=== PATIENT | male | born 1990 | race Caucasian/White ===

== ENCOUNTER 2018-08-09 13:45 | Emergency (ER) | payer BC, OTHER ==
[2018-08-09] MEDS ORDERED: LIDOCAINE 2% MPF 5 ML VIAL ONE (14:14)
[2018-08-09] MEDS ORDERED: NA CHLORIDE 0.9% 1,000 ML ONE (14:14)
[2018-08-09 14:22] LABS: Absolute Monocytes 0.5 K/uL (0.1-1.3); Absolute Neutrophil 4.5 K/uL (1.8-8.0); Basophils % 0.6 % (0-1.3); Eosinophils % 2.9 % (0-4.4); Hematocrit 28.2 % (39.6-49.0); Lymphocytes % 16.4 % (15.3-44.8); MPV 8.1 fL (7.6-11.3); Monocytes % 8.3 % (3.3-12.3); RBC Red Blood Cell Count 4.51 M/uL (4.33-5.43)
[2018-08-09 14:37] LABS: BUN Blood Urea Nitrogen 10 mg/dL (7-18); Bicarbonate 29 mmol/L (21-32); Glucose Level 129 mg/dL (74-106); Potassium 3.2 mmol/L (3.5-5.1); Sodium Level 141 mmol/L (136-145)
--- NOTE | 2018-08-09 14:40 | RAD REPORT ---
EXAM DESCRIPTION: CT - Head Brain Wo Cont - 08/09/2018 2:31 pm CLINICAL HISTORY: Syncope, blunt force trauma, head injury, right periorbital laceration, headache COMPARISON: None. TECHNIQUE: Axial 5 mm thick images of the head were obtained without IV contrast. All CT scans are performed using dose optimization technique as appropriate and may include automated exposure control or mA/KV adjustment according to patient size. FINDINGS: No intracranial hemorrhage, mass, edema or shift of mid-line structures. No acute infarcti on changes seen. No abnormal extra-axial fluid collections. Ventricles are normal. Mastoid air cells and visualized portions of the paranasal sinuses are clear. No acute bony findings. IMPRESSION: Negative non-contrast CT head examination.
--- NOTE | 2018-08-09 16:01 | ER ---
Nurse's Notes [facility] Name: Migue Quan Age: 27 yrs Sex: Male : 1990 Arrival Date: 08/09/2018 Time: 13:53 Bed 26 Private MD: Diagnosis: Forehead laceration;Anemia, unspecified Presentation: 08/09 13:53 Presenting complaint: EMS states: was getting into the shower and became dizzy and em fell, has been "fighting the flu" and fell, denies LOC, 1-2 inch laceration noted to right eye brow, small amount of bleeding noted, reports headache 5/10, denies N/V, A\\T\\Ox4. Transition of care: patient was not received from another setting of care. Complicating Factors: There are no complicating factors for this patient. Onset of symptoms was August 09, 2018. Risk Assessment: Do you want to hurt yourself or someone else? Patient reports no desire to harm self or others. Initial Sepsis Screen: Does the patient meet any 2 criteria? No. Patient's initial sepsis screen is negative. Does the patient have a suspected source of infection? Yes: Skin breakdown/wound. Care prior to arrival: Medication(s) given: Normal saline infusion, 250 mL. 13:53 Method Of Arrival: EMS: [facility] em 14:01 Acuity: SUJATA 3 aa5 Triage Assessment: 13:57 General: Appears in no apparent distress. comfortable, Behavior is calm, cooperative. em Pain: Complains of pain in middle aspect of right eyebrow. Injury Description: Laceration sustained to middle aspect of right eyebrow is 2.6 to 7.5 cm long, bleeding moderately. Historical: - Allergies: 13:57 No Known Allergies; em - PMHx: 13:57 None; em - PSHx: 13:57 None; em - Immunization history:: Adult Immunizations up to date, Last tetanus immunization: > 10 years ago. - Social history:: Smoking status: Patient/guardian denies using tobacco. - Ebola Screening: : Patient negative for fever greater than or equal to 101.5 degrees Fahrenheit, and additional compatible Ebola Virus Disease symptoms Patient denies exposure to infectious person Patient denies travel to an Ebola-affected area in the 21 days before illness onset No symptoms or risks identified at this time. - Family history:: not pertinent. - Hospitalizations: : No recent hospitalization is reported. Screenin:59 Abuse screen: Denies threats or abuse. Nutritional screening: No deficits noted. em Tuberculosis screening: No symptoms or risk factors identified. Fall Risk None identified. Assessment: 13:53 General: Appears in no apparent distress. comfortable, Behavior is calm, cooperative. em Pain: Complains of pain in middle aspect of right eyebrow Pain currently is 5 out of 10 on a pain scale. Neuro: Level of Consciousness is awake, alert, obeys commands, Oriented to person, place, time, situation, Reports dizziness, headache. Cardiovascular: Capillary refill < 3 seconds Patient's skin is warm and dry. Respiratory: Airway is patent Respiratory effort is even, unlabored, Respiratory pattern is regular, symmetrical. GI: Abdomen is flat, Patient currently denies nausea, vomiting. : No signs and/or symptoms were reported regarding the genitourinary system. Derm: Skin is intact, is healthy with good turgor, Skin is pink, warm \\T\\ dry. Musculoskeletal: Capillary refill < 3 seconds, Range of motion: intact in all extremities. Injury Description: Laceration sustained to middle aspect of right eyebrow is 2.6 to 7.5 cm long, was sustained 30-60 minutes ago. 13:53 Reassessment: I agree with assessment completed by BIANCA Romero aa5 14:58 Reassessment: Patient appears in no apparent distress at this time. Patient and/or em family updated on plan of care and expected duration. Pain level reassessed. Patient is alert, oriented x 3, equal unlabored respirations, skin warm/dry/pink. 16:01 Reassessment: Patient appears in no apparent distress at this time. Patient and/or em family updated on plan of care and expected duration. Pain level reassessed. Patient is alert, oriented x 3, equal unlabored respirations, skin warm/dry/pink. Vital Signs: 13:57 BP 116 / 59; Pulse 82; Resp 18; Temp 98.3(O); Pulse Ox 99% on R/A; Weight 83.91 kg; em Height 6 ft. 3 in. (190.50 cm); Pain 5/10; 15:00 BP 117 / 64; Pulse 79; Resp 16; Pulse Ox 99% on R/A; em 13:57 Body Mass Index 23.12 (83.91 kg, 190.50 cm) em ED Course: 13:53 Patient arrived in ED. em 13:53 Tres Flowers MD is Attending Physician. rn 13:57 Arm band placed on. em 14:00 Initial lab(s) drawn, by me, sent to lab. Maintain EMS IV. Dressing intact. Good blood jp3 return noted. Site clean \\T\\ dry. Gauge \\T\\ site: 20-gauge in RAC. Patient maintains SpO2 saturation greater than 95% on room air. Wound care: to laceration located on inner aspect of right eyebrow and middle aspect of right eyebrow was cleaned with Hibiclens, debrided using Betadine scrub, irrigated with normal saline, Patient tolerated well. 14:01 Triage completed. aa5 14:02 Gregorio Carrington LVN is Primary Nurse. em 14:30 Basic Metabolic Panel Sent. jp3 14:30 CBC with Diff Sent. jp3 14:31 CT Head Brain wo Cont In Process Unspecified. EDMS 14:31 Bed in low position. Call light in reach. Side rails up X 1. Side rails up X2. Warm jp3 blanket given. Pulse ox on. NIBP on. 14:48 EKG done, by central supply tech. reviewed by Tres Flowers MD. at1 15:40 Assist provider with laceration repair on middle aspect of right eyebrow that was em between 2.6 to 7.5 cm using sutures. Set up tray. Performed by Francesco CABRERA Dressed with 4X4s, Neosporin, Patient tolerated well. 16:05 IV discontinued, intact, bleeding controlled, No redness/swelling at site. Pressure em dressing applied. Administered Medications: 14:40 Drug: NS 0.9% 1000 ml Route: IV; Rate: 1000 ml; Site: right antecubital; em 15:37 Follow up: IV Status: Completed infusion; IV Intake: 1000ml em 15:38 Drug: Lidocaine (1 %) 1 vials {Note: administered by RICK Maya.} Volume: 5 ml; Route: em Infiltration; Site: wound; Intake: 15:37 IV: 1000ml; Total: 1000ml. em Outcome: 16:00 Discharge ordered by . rn 16:09 Discharged to home ambulatory, with family. em 16:09 Condition: good 16:09 Discharge instructions given to patient, family, Instructed on discharge instructions, follow up and referral plans. Demonstrated understanding of instructions, follow-up care. 16:10 Patient left the ED. em Signatures: Dispatcher [employer] Gregorio Garcia, TECHNOLOGIES DIVISION CHAIR TECHNOLOGIES DIVISION CHAIR em Tres Flowers MD MD rn Calderon, Audri, RN RN aa5 Sherrie Mendez, clipper and turner EKG Tat1 Raudel Garcias jp3
--- NOTE | 2018-08-09 16:02 | EDPHYS ---
Physician Documentation [facility] Name: Migue Quan Age: 27 yrs Sex: Male : 1990 Arrival Date: 08/09/2018 Time: 13:53 Bed 26 Private MD: ED Physician Tres Flowers HPI: 08/09 15:54 This 27 yrs old Male presents to ER via EMS with complaints of Laceration To rn Forehead, Dizziness. 15:54 The laceration(s) is(are) located on the forehead. Onset: The symptoms/episode rn began/occurred just prior to arrival. The patient has not experienced similar symptoms in the past. REports in shower, doesn't know how he fell, hit head on floor, no LOC, no vomiting, + mild headache. . Historical: - Allergies: 13:57 No Known Allergies; em - PMHx: 13:57 None; em - PSHx: 13:57 None; em - Immunization history:: Adult Immunizations up to date, Last tetanus immunization: > 10 years ago. - Social history:: Smoking status: Patient/guardian denies using tobacco. - Ebola Screening: : Patient negative for fever greater than or equal to 101.5 degrees Fahrenheit, and additional compatible Ebola Virus Disease symptoms Patient denies exposure to infectious person Patient denies travel to an Ebola-affected area in the 21 days before illness onset No symptoms or risks identified at this time. - Family history:: not pertinent. - Hospitalizations: : No recent hospitalization is reported. ROS: 15:54 Constitutional: Negative for fever, chills, and weight loss, Eyes: Negative for injury, rn pain, redness, and discharge, Cardiovascular: Negative for chest pain, palpitations, and edema, Respiratory: Negative for shortness of breath, cough, wheezing, and pleuritic chest pain, Abdomen/GI: Negative for abdominal pain, nausea, vomiting, diarrhea, and constipation, MS/Extremity: Negative for injury and deformity, Skin: + forehead laceration Neuro: Negative for weakness, numbness, tingling, and seizure. Exam: 15:54 Constitutional: This is a well developed, well nourished patient who is awake, alert, rn and in no acute distress. Head/Face: Normocephalic, 4 cm oblique laceration mid/right forehead, no depression Eyes: Pupils equal round and reactive to light, extra-ocular motions intact. Lids and lashes normal. Conjunctiva and sclera are non-icteric and not injected. Cornea within normal limits. Periorbital areas with no swelling, redness, or edema. Cardiovascular: Regular rate and rhythm, No pulse deficits. Respiratory: Lungs have equal breath sounds bilaterally, clear to auscultation Abdomen/GI: soft, non-tender Neuro: Awake and alert, GCS 15, oriented to person, place, time, and situation. Cranial nerves II-XII grossly intact. Motor strength 5/5 in all extremities. Sensory grossly intact. Cerebellar exam normal. Vital Signs: 13:57 BP 116 / 59; Pulse 82; Resp 18; Temp 98.3(O); Pulse Ox 99% on R/A; Weight 83.91 kg; em Height 6 ft. 3 in. (190.50 cm); Pain 5/10; 15:00 BP 117 / 64; Pulse 79; Resp 16; Pulse Ox 99% on R/A; em 13:57 Body Mass Index 23.12 (83.91 kg, 190.50 cm) em Laceration: 15:49 Wound Repair of 3.5cm ( 1.4in ) subcutaneous laceration to above right eye. Linear cp shaped.. Distal neuro/vascular/tendon intact. Anesthesia: Wound infiltrated with 4 mls of 1% lidocaine. Wound prep: Simple cleansing by senior environmental technician. Skin closed with 7 6-0 Prolene using interrupted sutures and sterile technique. Dressed with Bacitracin, bandaid. Patient tolerated well. MDM: 13:53 Patient medically screened. rn 15:54 Differential diagnosis: superficial laceration. Data reviewed: vital signs, nurses rn notes, lab test result(s), EKG, radiologic studies, CT scan, and as a result, I will discharge patient. Counseling: I had a detailed discussion with the patient and/or guardian regarding: the historical points, exam findings, and any diagnostic results supporting the discharge/admit diagnosis, lab results, radiology results, the need for outpatient follow up, to return to the emergency department if symptoms worsen or persist or if there are any questions or concerns that arise at home. Response to treatment: the patient's symptoms have markedly improved after treatment. Special discussion: I discussed with the patient/guardian in detail that at this point there is no indication for admission to the hospital. It is understood, however, that if the symptoms persist or worsen the patient needs to return immediately for re-evaluation. ED course: Pt reports has been getting over the flu lately, also reports drinks often and has terrible diet. + mild anemia, when asked, patient denies blood in stool/dark stool or any bleeding for that matter. . 08/09 14:00 Order name: CBC with Diff rn 08/09 14:00 Order name: Basic Metabolic Panel; Complete Time: 14:44 rn 08/09 14:00 Order name: EKG; Complete Time: 14:01 rn 08/09 14:00 Order name: CT Head Brain wo Cont; Complete Time: 14:44 rn 08/09 14:00 Order name: IV Start; Complete Time: 14:14 rn 08/09 14:00 Order name: EKG - Nurse/Tech; Complete Time: 14:43 rn 08/09 14:00 Order name: Suture Tray at Bedside; Complete Time: 14:14 rn Administered Medications: 14:40 Drug: NS 0.9% 1000 ml Route: IV; Rate: 1000 ml; Site: right antecubital; em 15:37 Follow up: IV Status: Completed infusion; IV Intake: 1000ml em 15:38 Drug: Lidocaine (1 %) 1 vials {Note: administered by RICK Maya.} Volume: 5 ml; Route: em Infiltration; Site: wound; Disposition: 18:02 Co-signature as Attending Physician, Tres Flowers MD. rn Disposition: 08/09/18 16:00 Discharged to Home. Impression: Forehead laceration, Anemia, unspecified. - Condition is Stable. - Work release form, Antibiotic Education form. - Follow up: Private Physician; When: As needed; Reason: Recheck today's complaints, Re-evaluation by your physician. - Problem is new. - Symptoms have improved. Signatures: Dispatcher [employer] Gregorio Garcia, TURRET PUNCH OPERATOR TURRET PUNCH OPERATOR Tres Mujica MD MD rn Francesco Howe PA PA cp Corrections: (The following items were deleted from the chart) 15:58 15:54 Constitutional: This is a well developed, well nourished patient who is awake, rn alert, and in no acute distress. Head/Face: Normocephalic, 4 cm oblique laceration mid/right forehead, no depression Eyes: Pupils equal round and reactive to light, extra-ocular motions intact. Lids and lashes normal. Conjunctiva and sclera are non-icteric and not injected. Cornea within normal limits. Periorbital areas with no swelling, redness, or edema. Neuro: Awake and alert, GCS 15, oriented to person, place, time, and situation. Cranial nerves II-XII grossly intact. Motor strength 5/5 in all extremities. Sensory grossly intact. Cerebellar exam normal. rn 16:10 16:00 08/09/2018 16:00 Discharged to Home. Impression: Forehead laceration; Anemia, em unspecified. Condition is Stable. Forms are Medication Reconciliation Form, Thank You Letter, Antibiotic Education, Prescription Opioid Use. Follow up: Private Physician; When: As needed; Reason: Recheck today's complaints, Re-evaluation by your physician. Problem is new. Symptoms have improved. rn
[2018-08-09 22:18] LABS: Anisocytosis 1+; Blood Morphology Comment NOTED (NOT SEEN); Platelet Estimate ADEQ; Urine White Blood Cell Casts OK
--- NOTE | 2018-08-11 10:31 | EKG ---
Test Date: 2018-08-09 Test Time: 14:39:42 [employer] Worker: GRAEME MEASUREMENT RESULTS: Intervals: Rate: 78 CT: 162 QRSD: 94 QT: 356 QTc: 405 [place]: P: 25 CT: 162 QRS: 34 T: 49 INTERPRETIVE STATEMENTS: Normal sinus rhythm Normal ECG No previous ECG available for comparison Electronically Signed On 08-10-18 08:10:17 CDT by Bhavesh Galdamez
== END 2018-08-09 16:10 | disposition home or self-care (01) ==
LOC: ER 13:45
PROC: 0JQ10ZZ Repair Face Subcutaneous Tissue and Fascia, Open Approach (ICD-10-PCS; principal; 2018-08-09)
DX: S01.81XA Laceration without foreign body of other part of head, initial encounter (principal); W18.30XA Fall on same level, unspecified, initial encounter; Y93.E1 Activity, personal bathing and showering; D64.9 Anemia, unspecified
CPT/HCPCS: 36415; 70450; 80048; 82962; 85025; 93005; 96360; 99285; J7030

== ENCOUNTER 2024-05-17 20:33 | Emergency (ER) | payer BC ==
[2024-05-17] MEDS ORDERED: LIDOCAINE 1% 20 ML MDV ONE (21:15)
[2024-05-17] MEDS ORDERED: CEFAZOLIN SODIUM 1 GM/VIAL ONE (21:15)
[2024-05-17] MEDS ORDERED: TDAP (DIPHTH,PERTUSS(ACELL),TET VAC) 0.5 ML VIAL IMVAC ONE (21:16)
[2024-05-17] MEDS ORDERED: NA CHLORIDE 0.9% 100 ML ONE (21:16)
--- NOTE | 2024-05-18 00:27 | RAD REPORT ---
EXAM DESCRIPTION: XR FOREARM 2 VIEWS RIGHT CLINICAL HISTORY: Pain. TECHNIQUE: Two x-ray views of the right forearm was submitted. COMPARISON: None FINDINGS: There is no acute fracture or dislocation. Bone mineralization is within normal limits. There is no r adiopaque foreign body material. IMPRESSION: No acute fracture or dislocation. Electronically signed by: Bhavin Marina MD 05/18/2024 12:21 AM [facility] Due to temporary technical issues with the PACS/[employer] reporting system, reports are being alejandra d by the in-house radiologist without review as a courtesy to ensure prompt reporting the interpreting radiologist is fully responsible for the content of the report. Transcribed Date/Time: 05/18/2024 12:27 AM
--- NOTE | 2024-05-18 00:49 | ER ---
Nurse's Notes [facility] Name: Migue Quan Age: 33 yrs Sex: Male : 1990 Arrival Date: 05/17/2024 Time: 20:33 Bed 10 Private MD: Diagnosis: Bitten by dog;Laceration without foreign body of left forearm-x2;Laceration without foreign body of right forearm-x6;Contusion of right forearm;Abrasion of right forearm;Laceration abdominal wall, right side;Puncture wound without foreign body of right lower extremity x5 Presentation: 05/17 20:55 Chief complaint: Patient states: Bit by [place] Joelle Pts own service animal pt is kl vaccinated pt at scene Case # [id number] minimal bleeding noted. Coronavirus screen: Vaccine status: Patient reports being unvaccinated. Ebola Screen: Patient negative for fever greater than or equal to 101.5 degrees Fahrenheit, and additional compatible Ebola Virus Disease symptoms. Initial Sepsis Screen: Does the patient meet any 2 criteria? No. Patient's initial sepsis screen is negative. Does the patient have a suspected source of infection? No. Patient's initial sepsis screen is negative. Risk Assessment: Do you want to hurt yourself or someone else? Patient reports no desire to harm self or others. Onset of symptoms was May 17, 2024 at 20:00. 20:55 Method Of Arrival: EMS: [facility] 20:55 Acuity: SUJATA 3 kl 21:09 Care prior to arrival: Medication(s) given: ativan 2 mg fentanyl 75mcg. kl Triage Assessment: 21:06 General: Appears uncomfortable, unkempt, Behavior is calm, cooperative. Pain: Complains kl of pain in left hand, right arm and right leg Pain currently is 7 out of 10 on a pain scale. EENT: No deficits noted. Neuro: No deficits noted. Cardiovascular: No deficits noted. Respiratory: No deficits noted. GI: No deficits noted. No signs and/or symptoms were reported involving the gastrointestinal system. : No deficits noted. No signs and/or symptoms were reported regarding the genitourinary system. Derm: Wound noted palmar aspect of right forearm Wound is jagged edges approx 4-6 cm no active bleeding puncture wounds to right knee lac to left 4th and fifth finger. Musculoskeletal: No deficits noted. Injury Description: Bite caused by a dog, is from animal, was sustained 30-60 minutes ago. Historical: - Allergies: 21:05 No Known Allergies; - Home Meds: 21:05 anxiety med as needed [Active]; kl - PMHx: 21:05 Anxiety; former ETOH abuse; kl - PSHx: 21:05 None; kl - Immunization history:: Last tetanus immunization: unknown. - Infectious Disease History:: Denies. - Social history:: Smoking status: Reported history of juuling and/or vaping. Screenin:10 [facility] ED Fall Risk Assessment (Adult) History of falling in the last 3 months, kl including since admission No falls in past 3 months (0 pts) Confusion or Disorientation No (0 pts) Intoxicated or Sedated No (0 pts) Impaired Gait Yes (1 pt) Mobility Assist Device Used No (0 pt) Altered Elimination No (0 pt) Score/Fall Risk Level 0 - 2 = Low Risk Oriented to surroundings, Maintained a safe environment. Abuse screen: Denies threats or abuse. Nutritional screening: No deficits noted. Tuberculosis screening: No symptoms or risk factors identified. Assessment: 21:10 Reassessment: Patient appears in no apparent distress at this time. 05/18 01:07 Reassessment: Patient appears in no apparent distress at this time. Patient is alert, kl oriented x 3, equal unlabored respirations, skin warm/dry/pink. Patient states feeling better. Patient states symptoms have improved. Vital Signs: 05/17 20:55 BP 118 / 86; Pulse 70; Resp 19; Temp 97.3; Pulse Ox 97% on R/A; Pain 7/10; kl 21:28 Weight 102.06 kg; Height 6 ft. 3 in. ; vc1 05/18 01:07 BP 120 / 62; Pulse 80; Resp 16; Pulse Ox 97% on R/A; Pain 2/10; kl 05/17 21:28 Body Mass Index 28.12 (102.06 kg, 190.5 cm) vc1 05/17 20:55 Pain Scale: Adult 05/18 01:07 Pain Scale: Adult ED Course: 05/17 20:40 Patient arrived in ED. vc1 20:44 Libertad [facility]-C [facility] 20:44 Nate Dolan MD is Attending Physician. kb 20:58 Triage completed. kl 21:09 Maintain EMS IV. Dressing intact. Good blood return noted. Site clean \T\ dry. Gauge \T\ kl site: 20 gauge . 21:10 Patient has correct armband on for positive identification. Bed in low position. Call kl light in reach. Side rails up X2. Provided Education on: plan of care . 22:59 Forearm Right XRAY In Process Unspecified. EDMD 05/18 01:08 No provider procedures requiring assistance completed. IV discontinued, intact, kl bleeding controlled, No redness/swelling at site. Pressure dressing applied. Dressings: Kerlix X 4; right arm, left hand and right leg non-adherent dressing x 4 right forearm and palmar aspect of right forearm and right leg and left hand. Wound care: Patient tolerated well. Administered Medications: 05/17 21:25 Drug: Boostrix Tdap IM 0.5 ml IM once; as a single dose Route: IM; Site: right deltoid; kl 21:25 Drug: ceFAZolin IVPB 1 grams IVPB once Route: IVPB; Site: left antecubital; kl 05/18 00:39 Drug: Lidocaine Infiltration (1 %) 2 vials 20 ml Infiltration once; to bedside {Note: kl administered by provider.} Volume: 20 ml; Route: Infiltration; Outcome: 00:49 Discharge ordered by . kb 01:09 Patient left the ED. Signatures: Dispatcher [employer] EDMD Libertad Lewis, Suzy Shelton RN RN kl [place], Vanessa, RN RN vc1
--- NOTE | 2024-05-18 00:49 | EDPHYS ---
Physician Documentation [facility] Name: Migue Quan Age: 33 yrs Sex: Male : 1990 Arrival Date: 05/17/2024 Time: 20:33 Bed 10 Private MD: ED Physician Nate Dolan HPI: 05/17 21:13 This 33 yrs old Male presents to ER via EMS with complaints of dog bite. kb 21:13 Patient is a 33-year-old male who presents after dog bite. States he was trying to get kb a metal can out of the dog's mouth and the dog attacked him. Patient has multiple abrasions and lacerations to extremities and 1 to abdomen. Historical: - Allergies: 21:05 No Known Allergies; kl - Home Meds: 21:05 anxiety med as needed [Active]; kl - PMHx: 21:05 Anxiety; former ETOH abuse; kl - PSHx: 21:05 None; kl - Immunization history:: Last tetanus immunization: unknown. - Infectious Disease History:: Denies. - Social history:: Smoking status: Reported history of juuling and/or vaping. ROS: 21:14 Constitutional: As per HPI kb Exam: 05/18 00:52 Constitutional: This is a well developed, well nourished patient who is awake, alert, kb and in no acute distress. Head/Face: Normocephalic, atraumatic. ENT: Moist Mucous membranes Neck: Trachea midline and no cervical lymphadenopathy. Supple, full range of motion without nuchal rigidity, or vertebral point tenderness. No Meningismus. Chest/axilla: Normal chest wall appearance and motion. Cardiovascular: Regular rate Respiratory: Respirations even and unlabored. No increased work of breathing. Talking in full sentences Abdomen/GI: Soft, non-tender. No distention Back: No spinal tenderness. No costovertebral tenderness. Full range of motion. Neuro: Awake and alert, GCS 15, oriented to person, place, time, and situation. Musculoskeletal/extremity: Extremities: grossly normal except: noted in the right forearm: contusion, decreased ROM, pain, swelling, tenderness, ROM: limited active range of motion due to pain, in the right forearm, Circulation is intact in all extremities. Sensation intact. Skin: Multiple abrasions and small punctures to right forearm, as well as 6 lacerations. 2 cm laceration to right lateral abdominal wall. 4 puncture wounds to lateral right knee and one puncture wound to right medial knee. Multiple abrasions and small punctures to left forearm with 2 lacerations. Laceration to fourth and fifth digits on left hand. Vital Signs: 05/17 20:55 BP 118 / 86; Pulse 70; Resp 19; Temp 97.3; Pulse Ox 97% on R/A; Pain 7/10; kl 21:28 Weight 102.06 kg; Height 6 ft. 3 in. ; vc1 05/18 01:07 BP 120 / 62; Pulse 80; Resp 16; Pulse Ox 97% on R/A; Pain 2/10; kl 05/17 21:28 Body Mass Index 28.12 (102.06 kg, 190.5 cm) vc1 05/17 20:55 Pain Scale: Adult kl 05/18 01:07 Pain Scale: Adult kl Laceration: 00:55 Wound Repair of 1cm ( 0.4in ) subcutaneous laceration to right lower quadrant. Linear kb shaped.. Distal neuro/vascular/tendon intact. Anesthesia: Local anesthetic administered with 1 mls of 1% lidocaine. Wound prep: Extensive cleansing with hibiclenz by me, Wound irrigation with saline by me. Skin closed with 1 5-0 Prolene using simple sutures and sterile technique. Patient tolerated well. 00:55 Wound Repair of 1cm ( 0.4in ) subcutaneous laceration to dorsal aspect of left forearm. kb Irregularly shaped.. Distal neuro/vascular/tendon intact. Anesthesia: Wound infiltrated with 1 mls of 1% lidocaine. Wound prep: Extensive cleansing with hibiclenz by me, Wound irrigation with saline by me. Skin closed with 1 5-0 Prolene using simple sutures and sterile technique. Patient tolerated well. 00:55 Wound Repair of 2cm ( 0.8in ) subcutaneous laceration to dorsal aspect of left forearm. kb Linear shaped.. Distal neuro/vascular/tendon intact. Anesthesia: Local anesthetic administered with 2 mls of 1% lidocaine. Wound prep: Extensive cleansing with hibiclenz by me, Wound irrigation with saline by me. Skin closed with 2 5-0 Prolene using simple sutures and sterile technique. Patient tolerated well. 00:55 Wound Repair of 1.5cm ( 0.6in ) subcutaneous laceration to palmar aspect of distal kb phalanx of left ring finger. Irregularly shaped.. Distal neuro/vascular/tendon intact. Anesthesia: Local anesthetic administered with 1 mls of 1% lidocaine. Wound prep: Extensive cleansing with hibiclenz by wi, Wound irrigation with saline by me. Skin closed with 2 5-0 Prolene using simple sutures and sterile technique. Patient tolerated well. 00:55 Wound Repair of 2cm ( 0.8in ) subcutaneous laceration to palmar aspect of distal kb phalanx of left little finger. Irregularly shaped.. Distal neuro/vascular/tendon intact. Anesthesia: Local anesthetic administered with 2 mls of 1% lidocaine. Wound prep: Extensive cleansing with hibiclenz by wi, Wound irrigation with saline by me. Skin closed with 4 5-0 Prolene using simple sutures and sterile technique. Patient tolerated well. 00:55 Wound Repair of .5cm ( 0.2in ) subcutaneous laceration to palmar aspect of right kb forearm. Linear shaped.. Distal neuro/vascular/tendon intact. Anesthesia: Local anesthetic administered with 1 mls of 1% lidocaine. Wound prep: Extensive cleansing with hibiclenz by wi, Wound irrigation with saline by wi. Skin closed with 1 5-0 Prolene using simple sutures and sterile technique. Patient tolerated well. 00:55 Wound Repair of 3cm ( 1.2in ) subcutaneous laceration to dorsal aspect of right kb forearm. Irregularly shaped.. Skin/tissue flap noted.. Distal neuro/vascular/tendon intact. Anesthesia: Local anesthetic administered with 2 mls of 1% lidocaine. Wound prep: Extensive cleansing with hibiclenz by wi, Wound irrigation with saline by wi. Skin closed with 4 5-0 Prolene using simple sutures and sterile technique. Patient tolerated well. 00:55 Wound Repair of 2cm ( 0.8in ) subcutaneous laceration to dorsal aspect of right kb forearm. Linear shaped.. Distal neuro/vascular/tendon intact. Anesthesia: Local anesthetic administered with 2 mls of 1% lidocaine. Wound prep: Extensive cleansing with hibiclenz by wi, Wound irrigation with saline by wi. Skin closed with 3 5-0 Prolene using simple sutures and sterile technique. Patient tolerated well. 00:55 Wound Repair of 2cm ( 0.8in ) subcutaneous laceration to dorsal aspect of right kb forearm. Linear shaped.. Distal neuro/vascular/tendon intact. Anesthesia: Local anesthetic administered with 2 mls of 1% lidocaine. Wound prep: Extensive cleansing with hibiclenz by me, Wound irrigation with saline by me. Skin closed with 2 5-0 Prolene using simple sutures and sterile technique. Patient tolerated well. 00:55 Wound Repair of 2cm ( 0.8in ) subcutaneous laceration to dorsal aspect of right kb forearm. Linear shaped.. Distal neuro/vascular/tendon intact. Anesthesia: Local anesthetic administered with 2 mls of 1% lidocaine. Wound prep: Extensive cleansing with hibiclenz by me, Wound irrigation with saline by me. Skin closed with 3 5-0 Prolene using simple sutures and sterile technique. Patient tolerated well. 00:55 Wound Repair of 0.5cm ( 0.2in ) subcutaneous laceration to dorsal aspect of right kb forearm. Linear shaped.. Distal neuro/vascular/tendon intact. Anesthesia: Local anesthetic administered with 1 mls of 1% lidocaine. Wound prep: Extensive cleansing with hibiclenz by me, Wound irrigation with saline by me. Skin closed with 1 5-0 Prolene using simple sutures and sterile technique. Patient tolerated well. 00:55 Wound Repair of 0.5cm ( 0.2in ) subcutaneous laceration to dorsal aspect of right kb forearm. Linear shaped.. Distal neuro/vascular/tendon intact. Anesthesia: Local anesthetic administered with 1 mls of 1% lidocaine. Wound prep: Extensive cleansing with hibiclenz by me, Wound irrigation with saline by me. Skin closed with 1 5-0 Prolene using simple sutures and sterile technique. Patient tolerated well. MDM: 05/17 20:44 Medical Screening Exam initiated kb 05/18 00:50 Differential diagnosis: superficial laceration, tendon injury, vascular injury. Data kb reviewed: vital signs, nurses notes. Independent interpretation of the following test(s) in the Emergency Department X-Ray: My interpretation is no fracture. Historians other than the Patient: EMS: [facility]. Counseling: I had a detailed discussion with the patient and/or guardian regarding the historical points, exam findings, and any diagnostic results supporting the discharge/admit diagnosis, radiology results, the need for outpatient follow up, a family practitioner, to return to the emergency department if symptoms worsen or persist or if there are any questions or concerns that arise at home. 05/17 22:40 Order name: Forearm Right XRAY kb 05/17 20:44 Order name: Dressing - Wound; Complete Time: 23:14 kb 05/17 20:44 Order name: Gloves, Sterile; Complete Time: 23:15 kb 05/17 20:44 Order name: Prolene, Sutures; Complete Time: 23:14 kb 05/17 20:44 Order name: Setup Suture Tray; Complete Time: 21:25 kb Administered Medications: 05/17 21:25 Drug: Boostrix Tdap IM 0.5 ml IM once; as a single dose Route: IM; Site: right deltoid; kl 21:25 Drug: ceFAZolin IVPB 1 grams IVPB once Route: IVPB; Site: left antecubital; kl 05/18 00:39 Drug: Lidocaine Infiltration (1 %) 2 vials 20 ml Infiltration once; to bedside {Note: kl administered by provider.} Volume: 20 ml; Route: Infiltration; Disposition: 20:20 Co-signature as Attending Physician, Nate Dolan MD I agree with the assessment sp4 and plan of care. I reviewed the patient's care provided by the Advanced Practice Provider and agree with the diagnosis and treatment plan. Disposition Summary: 05/18/24 00:49 Discharge Ordered Notes: Location: Home kb Condition: Stable kb Diagnosis - Bitten by dog kb - Laceration without foreign body of left forearm - x2 kb - Laceration without foreign body of right forearm - x6 kb - Contusion of right forearm kb - Abrasion of right forearm kb - Laceration abdominal wall, right side kb - Puncture wound without foreign body of right lower extremity x5 kb Followup: kb - With: Emergency Department - When: As needed - Reason: Worsening of condition Followup: kb - With: Private Physician - When: 2 - 3 days - Reason: Recheck today's complaints, Continuance of care, Re-evaluation by your physician Discharge Instructions: - Discharge Summary Sheet kb - Animal Bite, Adult, [id number] kb - Laceration Care, Adult, [id number] kb Forms: - Medication Reconciliation Form kb - Antibiotic Education kb - Prescription Opioid Use kb - Patient Portal Instructions kb - Leadership Thank You Letter kb Prescriptions: - Cephalexin 500 mg Oral Capsule - take 1 capsule ORAL route every 8 hours for 10 days; 30 capsule; Refills: 0, kb Product Selection Permitted Signatures: Dispatcher [employer] Libertad Esposito, EMILIANOC Suzy García, RN RN Nate Valladares MD MD sp4
[2024-05-18 01:14] VITALS: TEMP 97.3; O2SAT 97
[2024-05-18 01:16] VITALS: BP 120/62
== END 2024-05-18 01:09 | disposition home or self-care (01) ==
LOC: ER 20:33
PROC: 0JQH0ZZ Repair Left Lower Arm Subcutaneous Tissue and Fascia, Open Approach (ICD-10-PCS; principal; 2024-05-17)
PROC: 0JQG0ZZ Repair Right Lower Arm Subcutaneous Tissue and Fascia, Open Approach (ICD-10-PCS; 2024-05-17)
PROC: 0WQF0ZZ Repair Abdominal Wall, Open Approach (ICD-10-PCS; 2024-05-17)
DX: S51.812A Laceration without foreign body of left forearm, initial encounter (principal); S51.811A Laceration without foreign body of right forearm, initial encounter; S31.113A Laceration without foreign body of abdominal wall, right lower quadrant without penetration into peritoneal cavity, initial encounter; S50.11XA Contusion of right forearm, initial encounter; S81.831A Puncture wound without foreign body, right lower leg, initial encounter; W54.0XXA Bitten by dog, initial encounter; Y93.89 Activity, other specified; Y92.9 Unspecified place or not applicable; F17.290 Nicotine dependence, other tobacco product, uncomplicated; Z23 Encounter for immunization
CPT/HCPCS: 12002; 12004; 12001; 73090; 96372; 96374; 99284; 12031; 12032; 12041; J2003; J0690

== ENCOUNTER 2024-05-31 10:32 | Emergency (ER) | payer BC ==
--- OUTSIDE RECORDS SUMMARY | 2024-05-31 10:34 | XMS REPORT | Continuity of Care Document ---
Author Name Unknown Address [address] [place] [address] [facility] Address [address] [place] [address] Care Team Providers Care Principal Clerk Name Role Phone Brock Lal Attending Clinician Unavailable Payers Payer Name Policy Type Policy Number Effective Date Expirati on Date Source [facility] 6 [id number] 2019 00:00:00 [facility] 6 [id number] 2021 00:00:00 [facility] Problems Condition Name Condition Details Condition Category Status Onset Date Resolution Date Last Treatment Date Treating Clinician Comments Source [id number] Iron deficiency anemia, unspecifie d iron deficiency anemia type Problem Active [facility] [id number] Hypertrigl yceridemia Problem Active [facility] [id number] Irritable bowel syndrome with both constipati on and diarrhea Problem Active [facility] [id number] Alcohol use disorder, mild, abuse Problem Active [facility] Social History Social Habit Start Date Stop Date Quantity Comments Source History of Tobacco Use [facility] Sex Assigned At [facility] Smoking Status Start Date Stop Date Source Never Smoker [facility] Medications Ordered Medication Name Filled Medication Name Start Date Stop Date Current Medication? Ordering Clinician Indication Dosage Frequency Signature (SIG) Comments Components Source Kenalog (Triamcinol one) Kenalog (Triamcinol one) - 00:00: 00 No 40mg [facility] Kenalog (Triamcinol one) Kenalog (Triamcinol one) 08-09 00:00: 00 No 40mg [facility] Iron Iron Yes Brock Lal 1 tablet [facility] Tumersaid Tumersaid Yes Brock Lal not defined [facility] Iron 325 (65 Fe) MG Iron 325 (65 Fe) MG No 1{table t} QD Iron 325 (65 Fe) MG Tumersaid Tumersaid No Tumersaid Tumersaid Tumersaid No [place] Iron 325 (65 Fe) MG Iron 325 (65 Fe) MG No 1{table t} QD Iron 325 (65 Fe) MG Immunizations Ordered Immunization Name Filled Immunization Name Date Status Comments Source Adacel (Tdap) Adacel (Tdap) 2019-08-24 13:58:00 Completed [facility] TDAP > 7 Years-Adacel TDAP > 7 Years-Adacel 2019-08-24 00:00:00 Completed [facility] Adacel (Tdap) Adacel (Tdap) Unknown Completed Co [facility] Vital Signs Vital Name Observation Time Observation Value Comments S ource height 2021-11-13 10:30:00 75 [in_i] Commo n [facility] weight 2021-11-13 10:30:00 236.7 [lb_av] Co mmon [facility] temperature 2021-11-13 10:30:00 98.0 [degF] Com mon [facility] bmi 2021-11-13 10:30:00 29.58 kg/m2 Comm on [facility] oximetry 2021-11-13 10:30:00 97 % Commo n [facility] respiratory rate 2021-11-13 10:30:00 17 /min [facility] blood pressure systolic 2021-11-13 10:30:00 131 mm[Hg] [facility] blood pressure diastolic 2021-11-13 10:30:00 76 mm[Hg] [facility] height 2021-10-13 14:30:00 75 [in_i] Commo n [facility] weight 2021-10-13 14:30:00 239.7 [lb_av] Co mmon [facility] temperature 2021-10-13 14:30:00 98.1 [degF] Com mon [facility] bmi 2021-10-13 14:30:00 29.96 kg/m2 Comm on [facility] oximetry 2021-10-13 14:30:00 94 % Commo n [facility] respiratory rate 2021-10-13 14:30:00 16 /min [facility] blood pressure systolic 2021-10-13 14:30:00 135 mm[Hg] [facility] blood pressure diastolic 2021-10-13 14:30:00 86 mm[Hg] [facility] Encounters Start Date/Time End Date/Time Encounter Type Admission Type Attending Clinicians Care Facility Care Department Encounter ID Source 2021-06-25 14:12:22 Outpatient Lal, [facility] [id number] [facility] 2021-06-25 13:57:56 Outpatient Lal, [facility] [id number] [facility] 2021-06-25 13:43:46 Outpatient Lal, Brock [facility] [id number] [facility] 2021-06-25 13:19:47 Outpatient Lal, Brock [facility] [id number] [facility] 2021-06-25 13:11:48 Outpatient Lal, [facility] [id number] [facility] 2021-06-25 12:55:41 Outpatient Lal, Brock [facility] [id number] [facility] 2021-06-25 12:45:25 Outpatient Lal, Brock [facility] [id number] [facility] 2021-06-25 12:44:54 Outpatient Lal, Brock [facility] [id number] [facility] 2021-06-25 11:36:10 Outpatient Lal, Brock [facility] [id number] [facility] 2021-06-25 11:15:52 Outpatient Lal, Brock [facility] [id number] [facility] 2021-06-25 11:15:29 Outpatient Lal, Brock [facility] [id number] [facility] 2021-06-25 11:13:29 Outpatient Lal, Brock [facility] [id number] [facility] 2024-05-19 09:11:54 2024-05-19 09:11:54 Outpatient [facility] [id number] Michael Johnson Eddie 2022-08-26 00:00:00 2022-08-26 00:00:00 (TEL) [facility] [id number] [facility] 2021-11-13 00:00:00 2021-11-13 00:00:00 OFFICE VISIT EST PT LEVEL 3 [facility] [id number] [facility] 2021-10-13 00:00:00 2021-10-13 00:00:00 PREV VISIT EST AGE 18-39 [facility] [id number] [facility] 2020-09-23 00:00:00 2020-09-23 00:00:00 Outpatient [facility] [id number] [facility] 2020-08-26 00:00:00 2020-08-26 00:00:00 Outpatient [facility] [id number] [facility] 2019-10-16 10:00:00 2019-10-16 10:00:00 [facility] [id number] [facility] 2019-08-24 14:15:00 2019-08-24 14:15:[address] [facility] [id number] [facility] 2019-08-10 09:30:00 2019-08-10 09:30:00 [facility] [id number] [facility]
--- NOTE | 2024-05-31 10:58 | EDPHYS ---
Physician Documentation [facility] Name: Migue Quan Age: 33 yrs Sex: Male : 1990 Arrival Date: 05/31/2024 Time: 10:32 Bed 12 Private MD: ED Physician Matthew Lazaro HPI: 05/31 10:39 This 33 yrs old Male presents to ER via Unassigned with complaints of Suture Removal. ec2 10:39 Patient arrives today for evaluation of his sutures.. ec2 10:39 Patient had sutures placed approximately 2 weeks ago.. ec2 Historical: - Allergies: 10:40 No Known Allergies; ll1 - PMHx: 10:36 Anxiety; former ETOH abuse; ll1 - Immunization history:: Adult Immunizations up to date. - Infectious Disease History:: Denies. - Social history:: Smoking status: Patient denies any tobacco usage or history of. ROS: 10:58 Constitutional: as per hpi ec2 Exam: 10:58 Constitutional: GEN: NAD Head: atraumatic Eyes: EOMI Ears: External ears are ec2 normal. CV: regular rate LUNGS: no respiratory distress ABD: non-distended SKIN: no evidence of rashes, multiple stitches throughout the body noted, well-healed MSK: no evidence of trauma Vital Signs: 10:40 BP 118 / 96; Pulse 91; Resp 17; Temp 97.6; Pulse Ox 97% on R/A; Weight 107.5 kg; Height ll1 6 ft. 3 in. ; Pain 0/10; 11:00 BP 140 / 99; Pulse 81; Resp 17; Pulse Ox 95% ; ll1 10:40 Body Mass Index 29.62 (107.50 kg, 190.5 cm) ll1 10:40 Pain Scale: Adult ll1 Procedures: 10:58 Suture/Staple removal: Removed 25 sutures, from abdomen, left hand, right arm and left ec2 arm, site appears well healed, Patient tolerated well. MDM: 10:39 Medical Screening Exam initiated ec2 10:59 Data reviewed: vital signs, nurses notes. ec2 10:59 ED course: I removed 25 stitches from the patient's right flank, right forearm and ec2 hand, left forearm and left hand. Patient discharged home. Turn precautions given.. Administered Medications: No medications were administered Disposition Summary: 05/31/24 10:58 Discharge Ordered Notes: Location: Home ec2 Condition: Stable ec2 Diagnosis - Encounter for removal of sutures ec2 Followup: ec2 - With: Private Physician - When: - Reason: Re-evaluation by your physician Discharge Instructions: - Discharge Summary Sheet ec2 - Suture Removal, Care After ec2 Forms: - Medication Reconciliation Form ec2 - Antibiotic Education ec2 - Prescription Opioid Use ec2 - Patient Portal Instructions ec2 - Leadership Thank You Letter ec2 Signatures: Allen Lopez RN RN 1 Matthew Lazaro MD MD ec2
--- NOTE | 2024-05-31 10:58 | ER ---
Nurse's Notes [facility] Name: Migue Quan Age: 33 yrs Sex: Male : 1990 Arrival Date: 05/31/2024 Time: 10:32 Bed 12 Private MD: Diagnosis: Encounter for removal of sutures Presentation: 05/31 10:40 Chief complaint: Patient states: States had 25 sutures placed to B arms and R flank ll1 05/17. No fever, pain, or drainage from suture sites. Here for suture removal. Coronavirus screen: Client denies travel out of the [place] in the last 14 days. At this time, the client does not indicate any symptoms associated with coronavirus-19. Ebola Screen: Patient denies travel to an Ebola-affected area in the 21 days before illness onset. Initial Sepsis Screen: Does the patient meet any 2 criteria? No. Patient's initial sepsis screen is negative. Does the patient have a suspected source of infection? No. Patient's initial sepsis screen is negative. Risk Assessment: Do you want to hurt yourself or someone else? Patient reports no desire to harm self or others. Onset of symptoms was May 24, 2024. 10:40 Method Of Arrival: Ambulatory ll1 10:40 Acuity: SUJATA 5 ll1 Triage Assessment: 10:42 General: Appears in no apparent distress. Behavior is calm, cooperative, appropriate ll1 for age. Pain: Denies pain. Derm: Reports needs sutures removed from both arms and R flank area. Historical: - Allergies: 10:40 No Known Allergies; ll1 - PMHx: 10:36 Anxiety; former ETOH abuse; ll1 - Immunization history:: Adult Immunizations up to date. - Infectious Disease History:: Denies. - Social history:: Smoking status: Patient denies any tobacco usage or history of. Screenin:01 [facility] ED Fall Risk Assessment (Adult) History of falling in the last 3 months, ll1 including since admission No falls in past 3 months (0 pts) Confusion or Disorientation No (0 pts) Intoxicated or Sedated No (0 pts) Impaired Gait No (0 pts) Mobility Assist Device Used No (0 pt) Altered Elimination No (0 pt) Score/Fall Risk Level 0 - 2 = Low Risk Maintained a safe environment, Hourly rounding (assess needs \T\ fall precautionary measures) done. Abuse screen: Denies threats or abuse. Nutritional screening: No deficits noted. Tuberculosis screening: No symptoms or risk factors identified. Assessment: 11:01 Reassessment: No changes from previously documented assessment. Patient and/or family ll1 updated on plan of care and expected duration. Pain level reassessed. Patient is alert, oriented x 3, equal unlabored respirations, skin warm/dry/pink. sutures removed by Dr. Lazaro. Vital Signs: 10:40 BP 118 / 96; Pulse 91; Resp 17; Temp 97.6; Pulse Ox 97% on R/A; Weight 107.5 kg; Height ll1 6 ft. 3 in. ; Pain 0/10; 11:00 BP 140 / 99; Pulse 81; Resp 17; Pulse Ox 95% ; ll1 10:40 Body Mass Index 29.62 (107.50 kg, 190.5 cm) ll1 10:40 Pain Scale: Adult ll1 ED Course: 10:33 Patient arrived in ED. mr 10:34 Matthew Lazaro MD is Attending Physician. ec2 10:36 Arm band placed on Patient placed in an exam room, on a stretcher. ll1 10:41 Triage completed. ll1 11:00 Allen Lopez RN is Primary Nurse. ll1 11:02 Patient has correct armband on for positive identification. Provided Education on: ll1 return to ED for worsening symptoms. 11:02 No provider procedures requiring assistance completed. Patient did not have IV access ll1 during this emergency room visit. Administered Medications: No medications were administered Medication: 11:02 VIS not applicable for this client. ll1 Outcome: 10:58 Discharge ordered by . ec2 11:02 Discharged to home ambulatory, ll1 11:02 Condition: stable 11:02 Discharge instructions given to patient, Instructed on discharge instructions, follow up and referral plans. Demonstrated understanding of instructions, follow-up care, wound care, 11:02 Patient left the ED. ll1 Signatures: Sandy Zavala, Vijay Reg mr Allen Lopez RN RN ll1 Matthew Lazaro MD MD ec2 Corrections: (The following items were deleted from the chart) 10:42 10:40 Chief complaint: Patient states: States had 25 sutures placed to B arms and R ll1 flank about 1 week ago. No fever, pain, or drainage from suture sites. ll1
[2024-05-31 11:10] VITALS: TEMP 97.6
[2024-05-31 11:11] VITALS: BP 140/99; O2SAT 95
== END 2024-05-31 11:02 | disposition home or self-care (01) ==
LOC: ER 10:32
DX: Z48.02 Encounter for removal of sutures (principal)
CPT/HCPCS: 99282